=== PATIENT | female | born 1990 | race Two or more races ===

== ENCOUNTER 2021-12-04 19:40 | Emergency (ER) | payer OTHER ==
[2021-12-04] MEDS ORDERED: CHERRY SYRUP 10 ML UDC PO ONE (20:04)
[2021-12-04] MEDS ORDERED: diphenhydrAMINE INJ 50 MG/ML VIAL IM STA (20:04)
[2021-12-04] MEDS ORDERED: EPINEPHrine 1 MG/ML AMP IM STA (20:04)
[2021-12-04] MEDS ORDERED: DEXAMETHASONE 10 MG/ML VIAL PO STA (20:04)
--- NOTE | 2021-12-04 20:06 | ED Physician Documentation ---
History of Present Illness - Stated complaint Stated Complaint: SWOLLEN LIPS,RASH,SWOLLEN THROAT - Chief complaint Chief Complaint: Allergic Rx - History obtained from History obtained from: Patient - Additonal information Additional information: 31-year-old woman is approximately 2 weeks out from gastric bypass. She was advancing her diet and ate eggs several times over the last 24 hours, each time she ate eggs she developed worsening hives and now lip swelling and diffuse itching. No associated shortness of breath. No prior history of allergies. Review of Systems Constitutional: reports: Reviewed and negative Eyes: reports: Reviewed and negative Ears: reports: Reviewed and negative Nose: reports: Reviewed and negative PD PAST MEDICAL HISTORY - Past Medical History Past Medical History: Yes Psych: Depression, Anxiety Musculoskeletal: Chronic back pain - Past Surgical History Past Surgical History: Yes General: Gastric surgery Ortho: Spine surgery - Present Medications Home Medications: Ambulatory Orders Medication Instructions Recorded Confirmed PrednisoLONE [Prelone] 10 ml PO DAILY 5 Days #50 ml 12/04/21 - Allergies Allergies/Adverse Reactions: Allergies Allergy/AdvReac Type Severity Reaction Status Date / Time No Known Drug Allergies Allergy Verified 12/04/21 19:46 - Social History Does the pt smoke?: No Smoking Status: Never smoker Does the pt drink ETOH?: No Does the pt have substance abuse?: No - Immunizations Immunizations are current?: Yes PD ED PE NORMAL - Vitals Vital signs reviewed: Yes - General General: Alert and oriented X 3, No acute distress - HEENT HEENT: Other (She has mild angioedema of the upper and lower lips, relatively symmetric, posterior oropharynx is normal.) - Cardiac Cardiac: RRR, No murmur - Respiratory Respiratory: No respiratory distress, Clear bilaterally - Abdomen Abdomen: Normal bowel sounds, Soft, Non tender - Derm Derm: Other (Diffuse confluent hives) - Neuro Neuro: Alert and oriented X 3, Normal speech Results - Vitals Vitals: Vital Signs - 24 hr 12/04/21 19:46 Temperature 36.5 C Heart Rate 80 Respiratory 16 Rate Blood Pressure 132/80 H O2 Saturation 96 Oxygen O2 Source Room air PD MEDICAL DECISION MAKING - ED course ED course: 31-year-old woman presents with allergic reaction, potentially to eggs. She is treated here with IM epinephrine and oral dexamethasone and IM Benadryl. Departure - Departure Disposition: 01 Home, Self Care Clinical Impression: Allergic urticaria Condition: Good Record reviewed to determine appropriate education?: Yes Instructions: ED Allergic Reaction General Other Prescriptions: PrednisoLONE [Prelone] 10 ml PO DAILY 5 Days #50 ml Comments: I sent your prescription electronically to [facility] in [place]. Return if worsening. Follow-up with your physician for consideration for referral to an hotel lobby concierge to confirm that the allergic reaction was due to eggs.
[2021-12-04 20:42] VITALS: BP 125/82
== END 2021-12-04 20:42 | disposition home or self-care (01) ==
LOC: ED 19:40
DX: L50.0 Allergic urticaria (principal); Z98.84 Bariatric surgery status
CPT/HCPCS: 96372; 99282; 99283; A9270; J1200

== ENCOUNTER 2021-12-05 17:15 | Emergency (ER) | payer OTHER ==
[2021-12-05 17:22] VITALS: BP 141/86
[2021-12-05] MEDS ORDERED: DOXEPIN 10 MG CAPSULE PO STA (17:33)
[2021-12-05] MEDS ORDERED: CETIRIZINE 10 MG TABLET PO STA (17:34)
--- NOTE | 2021-12-05 17:35 | ED Physician Documentation ---
History of Present Illness - Stated complaint Stated Complaint: ALLERGIC REACTION - Chief complaint Chief Complaint: Allergic Rx - History obtained from History obtained from: Patient - Additonal information Additional information: 31-year-old woman with recent gastric bypass was seen last night for allergic reaction related to eggs. She has not had any more eggs today, but has worsened mostly with regards to the rash and the itching. The lip swelling is better. Review of Systems Constitutional: reports: Reviewed and negative Eyes: reports: Reviewed and negative Ears: reports: Reviewed and negative Cardiac: reports: Reviewed and negative Respiratory: reports: Reviewed and negative PD PAST MEDICAL HISTORY - Past Medical History Psych: Depression, Anxiety Musculoskeletal: Chronic back pain - Past Surgical History Past Surgical History: Yes General: Gastric surgery Ortho: Spine surgery - Present Medications Home Medications: Ambulatory Orders Medication Instructions Recorded Confirmed PrednisoLONE [Prelone] 10 ml PO DAILY 5 Days #50 ml 12/04/21 12/05/21 Cetirizine HCl [Zyrtec] 10 mg PO DAILY #20 tablet 12/05/21 Doxepin [SINEquan] 10 mg PO TID PRN #20 cap 12/05/21 - Allergies Allergies/Adverse Reactions: Allergies Allergy/AdvReac Type Severity Reaction Status Date / Time No Known Drug Allergies Allergy Verified 12/05/21 17:23 - Social History Does the pt smoke?: No Smoking Status: Never smoker Does the pt drink ETOH?: No Does the pt have substance abuse?: No - Immunizations Immunizations are current?: Yes PD ED PE NORMAL - Vitals Vital signs reviewed: Yes - General General: Alert and oriented X 3, No acute distress - HEENT HEENT: Other (Phonation and visualized portions of the oropharynx are normal. There is may be still some very mild angioedema of the lower lip but better than last night.) - Respiratory Respiratory: No respiratory distress, Clear bilaterally - Derm Derm: Other (Diffuse body wide hives) - Neuro Neuro: Alert and oriented X 3, Normal speech Results - Vitals Vitals: Vital Signs - 24 hr 12/05/21 17:19 Temperature 37.2 C Heart Rate 87 Respiratory 22 Rate Blood Pressure 141/86 H O2 Saturation 97 Oxygen O2 Source Room air PD MEDICAL DECISION MAKING - ED course ED course: 31-year-old woman with persistent allergic reaction despite treatment yesterday, will substitute doxepin and Zyrtec for the Benadryl. She is already on steroids. Epinephrine yesterday was not helpful. Departure - Departure Disposition: 01 Home, Self Care Clinical Impression: Allergic urticaria Condition: Good Record reviewed to determine appropriate education?: Yes Instructions: ED Allergic Reaction General Other Prescriptions: Doxepin [SINEquan] 10 mg PO TID PRN #20 cap PRN Reason: Itching Cetirizine HCl [Zyrtec] 10 mg PO DAILY #20 tablet Comments: You can continue the prednisone, medications I am giving you were stronger than Benadryl, like with Benadryl you should not drink or drive with them. Return if worsening. Follow-up with your doctor, still consider allergy referral for formal egg allergy and other testing. I sent your prescription electronically to [facility] in [place]. Discharge Date/Time: 12/05/21 17:48
== END 2021-12-05 17:48 | disposition home or self-care (01) ==
LOC: ED 17:15
DX: L50.0 Allergic urticaria (principal); Z98.84 Bariatric surgery status
CPT/HCPCS: 99282; 99284; A9270

== ENCOUNTER 2022-09-27 02:44 | Emergency (ER) | payer OTHER ==
[2022-09-27] MEDS ORDERED: ACETAMINOPHEN 325 MG TABLET PO STA (03:49)
[2022-09-27] MEDS ORDERED: NIRMATRELVIR/RITONAVIR PREPACK PO STA (04:10)
--- NOTE | 2022-09-27 04:14 | ED Physician Documentation ---
PD HPI URI - Stated complaint Stated Complaint: C+/ N,V,HEADACHE - Chief complaint Chief Complaint: Resp - History obtained from History obtained from: Patient - Additional information Additional information: Patient is a 32-year-old femaleWho is approximately 16 weeks presenting for evaluation of fever and myalgias since yesterday. Her and young daughter are here with similar symptoms. Her mother who lives with them recently tested positive for COVID a few days ago. Her took a home test which had a faint positive line yesterday.Patient denies chest pain, difficulty breathing, cough, abdominal pain, vomiting, dysuria, vaginal bleeding or discharge.Her OB is through [facility]. She is taking prenatals but denies other medications. 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 : None HEENT: None Psych: Depression, Anxiety Musculoskeletal: Chronic back pain Derm: None - Past Surgical History Past Surgical History: Yes General: Gastric surgery Ortho: Spine surgery - Present Medications Home Medications: Ambulatory Orders Medication Instructions Recorded Confirmed Calcium Carbonate [Calcium] 09/27/22 147/Iron/Folic Acid 09/27/22 [Ziphex Tablet] - Allergies Allergies/Adverse Reactions: Allergies Allergy/AdvReac Type Severity Reaction Status Date / Time No Known Drug Allergies Allergy Verified 09/27/22 03:34 - Social History Does the pt smoke?: No Smoking Status: Never smoker Does the pt drink ETOH?: No Does the pt have substance abuse?: No - Immunizations Immunizations are current?: Yes Immunizations: Other immun not current - POLST Patient has POLST: No PD ED PE NORMAL - General General: Alert and oriented X 3, No acute distress, Well developed/nourished - HEENT HEENT: Atraumatic, Moist mucous membranes, Pharynx benign - Neck Neck: Supple, no meningeal sign - Cardiac Cardiac: RRR, No murmur - Respiratory Respiratory: No respiratory distress, Clear bilaterally - Abdomen Abdomen: Soft, Non tender, Non distended - Derm Derm: Warm and dry - Extremities Extremities: No edema Results - Vitals Vitals: Vital Signs - 24 hr 09/27/22 09/27/22 03:34 04:52 Temperature 36.9 C 37.2 C Heart Rate 83 87 Respiratory 16 16 Rate Blood Pressure 126/82 H 132/78 H O2 Saturation 100 100 Oxygen O2 Source Room air - Labs Labs: Laboratory Tests 09/27/22 03:15 Nasal Adenovirus (PCR) NOT DETECTED Nasal B. parapertussis DNA (PCR) NOT DETECTED Nasal Coronavir 229E PCR NOT DETECTED Nasal Coronavir HKU1 PCR NOT DETECTED Nasal Coronavir NL63 PCR NOT DETECTED Nasal Coronavir OC43 PCR NOT DETECTED Nasal Enterovir/Rhinovir PCR NOT DETECTED Nasal Influenza B PCR NOT DETECTED Nasal Influenza A PCR NOT DETECTED Nasal Parainfluen 1 PCR NOT DETECTED Nasal Parainfluen 2 PCR NOT DETECTED Nasal Parainfluen 3 PCR NOT DETECTED Nasal Parainfluen 4 PCR NOT DETECTED Nasal RSV (PCR) NOT DETECTED Nasal B.pertussis DNA PCR NOT DETECTED Nasal C.pneumoniae (PCR) NOT DETECTED Brant Human Metapneumo PCR NOT DETECTED Nasal M.pneumoniae (PCR) NOT DETECTED Nasal SARS-CoV-2 (PCR) DETECTED A Procedures - Bedside sono Bedside sono by EMP: Bedside ultrasound performed: +IUP, + cardiac activity and movement PD MEDICAL DECISION MAKING - ED course ED course: Patient is a 32-year-old who is approximately 16 weeks presenting with viral symptoms. Her family members are here with also with similar symptoms and mother who lives with them is positive for COVID. Patient's respiratory panel is positive for COVID. Her bedside ultrasound is reassuring. As she is I did Discuss Paxlovid with her and she is agreeable to taking this medication. Patient counseled on continued supportive care as well as concerning symptoms to return for.Patient denies abdominal pain, vaginal bleeding. Departure - Departure Disposition: 01 Home, Self Care Clinical Impression: COVID-19 Condition: Stable Instructions: ED Viral Syndrome Comments: You have tested positive for COVID-19. Because you are I have started you on an antiviral medication called Paxlovid. This is safe in .Please make sure to stay hydrated and get plenty of rest. If you have any worsening symptoms such as labored breathing please return to the emergency department. Discharge Date/Time: 09/27/22 04:52
[2022-09-27 04:38] LABS: B. PARAPERTUSSIS- RESP PCR PAN NOT DETECTED; B. PERTUSSIS- RESP PCR PANEL NOT DETECTED; C. PNEUMONIAE- RESP PCR PANEL NOT DETECTED; CORONAVIRUS 229E-RESP PCR NOT DETECTED; CORONAVIRUS HKU1-RESP PCR NOT DETECTED; CORONAVIRUS NL63-RESP PCR NOT DETECTED; CORONAVIRUS OC43-RESP PCR NOT DETECTED; HUMAN METAPNEUMOVIRUS NOT DETECTED; INFLUENZA A- RESP PCR PANEL NOT DETECTED; INFLUENZA B - RESP PCR PANEL NOT DETECTED; M. PNEUMONIAE- RESP PCR PANEL NOT DETECTED; PARAINFLUENZA VIRUS 1 NOT DETECTED; PARAINFLUENZA VIRUS 2 NOT DETECTED; PARAINFLUENZA VIRUS 3 NOT DETECTED; PARAINFLUENZA VIRUS 4 NOT DETECTED; RHINOVIRUS/ENTEROVIRUS NOT DETECTED; RSV- RESP PCR PANEL NOT DETECTED; SARS-CoV-2 -RESP PCR PANEL DETECTED
[2022-09-27 04:53] VITALS: BP 132/78
== END 2022-09-27 04:52 | disposition home or self-care (01) ==
LOC: ED 02:44
DX: O98.512 Other viral diseases complicating pregnancy, second trimester (principal); U07.1 COVID-19; Z3A.16 16 weeks gestation of pregnancy
CPT/HCPCS: 87633; 99282; 99283; A9270; J3490

== ENCOUNTER 2023-02-01 09:27 | Outpatient (CLI) | payer OTHER ==
--- NOTE | 2023-02-01 10:22 | SLEEP CARE CONSULTATION ---
Information from patient questionnaire entered by Nakia Lambert. I have reviewed and concur with the information entered by Nakia Lambert. This document represents the service I personally performed and the decisions made by me, Mary Jo Vega ARNP. History of Present Illness Service Date and Time: 02/01/2023926 Reason for Visit: New patient Chief Complaint: reports: Snoring, Observed pauses in breathing, Fatigue, Frequent awakenings at night Date of Onset: 9MONTHS Usual bedtime: 10-11PM Time it takes to fall asleep: 30MIN-2HRS Snores at night: Yes Observed to quit breathing while asleep: Yes Sleeps alone due to snoring: No Number of times waking at night: 3-4 Reasons for waking at night: reports: Choking (heard by , a few times), Bathroom, Other (UNKNOWN; will nudge her to turn over because of loud snoring). denies: Snoring, Gasping for air Toss, Turn, or Twitch while sleeping: Yes Recalls having dreams: Yes Usually gets out of bed at: [id number]; DEPENDS ON APPOINTMENTS AND WHEN DAUGHTER WAKES UP Feels refreshed in the morning: No Morning headache: Yes (3-4 times a week; AFTER TYLENOL OR COFFEE) Sleepy or fatigued during the day: Yes Ever fallen asleep while driving: No Takes day naps: Yes (depends; 30-60 mins, 2 times a week) Dreams during day naps: No Prior sleep studies: No Additional HPI information: I had the pleasure of seeing SHARAD GALAVIZ today regarding the possibility of her having a sleep disorder. Her current complaints are observed pauses in breathing, fatigue, frequent night awakenings and snoring. She states she has gained a lot of weight since she had some back injury. Her has told her she snores loudly and having pauses in breathing. She states she had weight loss surgery, gastric sleeve, and lost 40 pounds but she still snored and had pauses in breathing. She then got soon after and so far has gained about 15-20 lbs of the weight back. She is about 33 weeks at this time. - Parasomnia Symptoms Ever been unable to move upon waking from sleep: No Walks in sleep: No Talks in sleep: Yes (according to ) Ever acted out dreams in sleep: No Ever felt weak in the knees when startled or emotional: No Bothered by creepy, crawly, restless sensations in legs: No Problems with memory or concentration: No Subjective Initial [place] Sleepiness Scale score: 16 (02/01/23) Past Medical History Past Medical History: reports: Anxiety, Depression, Other (33 weeks ) Social History The patient's occupation is a [employer]. Patient is and lives in [place]. Have you smoked in the past 12 months: No Alcohol use: No Caffeine use: Yes Caffeine amount and frequency: 1 A DAY Family History Family history of sleep disordered breathing: Yes Family Hx Sleep Apnea: Mother: Snoring, Grandparent: Sleep apnea - Treated Allergies and Home Medications Known drug allergies: No Drug allergies reviewed: Yes Home medication list reviewed: Yes Allergy and home medication list: Allergies No Known Drug Allergies Allergy (Verified 01/31/23 14:25) Medications: Ferrous sulfate vitamin Calcium Zyrtec Flonase Review of Systems Weight gain over past 5 years: (15-20 regained since became ) Weight loss over past 5 years: 40 Cardiovascular: denies: high blood pressure Gastrointestinal: reports: nausea, vomitting Neurological: reports: headaches Psychiatric: reports: anxiety, depression Ear/Nose/Throat: reports: nasal congestion, sinus problems, nose bleeds, dry mouth/throat, wisdom teeth removed. denies: tonsillectomy Musculoskeletal: reports: back pain Immunologic: reports: sneezing, allergies to food or environment (seasonal) Physical Exam Vital signs obtained and entered by: NAKIA Peña MA Blood Pressure: 100/64 (LEFT ARM) Cuff size: regular Heart Rate: 82 O2 Saturation: 98 Height: 5 ft 5 in Weight: 221 lb 9.6 oz Body Mass Index: 36.8 BMI Classification: Obese Neck circumference: 14.25 Mouth and throat: narrow oropharynx Soft palate: long Hard palate: normal Uvula: normal Uvula visualization: 25% Mallampati Class III Tongue: enlarged in size with teeth donald on lateral edges Tonsils: small Neck: normal w/o lymphadenopathy or thyromegaly Heart: regular rate and rhythm Lungs: clear bilaterally Impression and Plan 1. Suspected Obstructive Sleep Apnea-Hypopnea Syndrome, as suggested by a history of loud and irregular snoring, observed cessation of breath while asleep, gasping or choking in sleep, morning headache, frequent awakening during the night, unrefreshed sleep, and excessive daytime sleepiness. Narrow oropharynx and obesity are common predisposing factors for obstructive sleep apnea-hypopnea syndrome. I recommend proceeding to polysomnography to confirm the diagnosis and to assess severity. If the patient has significant sleep disordered breathing, a manual CPAP titration study will also be performed to find the optimal treatment pressure. I informed the patient of what the sleep studies involve and after some discussion, obtained agreement to proceed. The pathophysiology of obstructive sleep apnea-hypopnea syndrome was discussed with the patient and health risks of cardiovascular and cerebrovascular disease if not treated. Risks of drowsy driving discussed in detail and patient advised to avoid long distance driving and to veneer puller at the first sign of drowsiness. Patient agreed to plan. * Schedule polysomnography * Avoid long distance driving or driving when feeling sleepy. * Avoid alcohol, sedative and muscle relaxant around bedtime. * Attempt to lose weight. * Review instructions provided by trained office staff on how to prepare for the sleep study. * Return for follow-up after sleep study completed. Counseling Topics: Weight loss health impact Visit Type: In Office Time Spent with Patient (minutes): 30 Provider Statement: I spent 100% of the Face to Face Visit with the patient with greater than 50% spent counseling the patient and coordination of care.
[2023-02-01 10:29] VITALS: BP 100/64
== END 2023-02-01 09:28 | disposition home or self-care (01) ==
LOC: SC 09:27
PROVIDERS: ATTEND Nurse Practitioner Family
DX: R06.83 Snoring (principal); G47.8 Other sleep disorders; R06.81 Apnea, not elsewhere classified; R51.9 Headache, unspecified; G47.10 Hypersomnia, unspecified; F32.A Depression, unspecified; E66.9 Obesity, unspecified; Z33.1 Pregnant state, incidental
CPT/HCPCS: 99203; 99212

== ENCOUNTER 2023-05-16 13:18 | Outpatient (CLI) | payer OTHER | END 2023-05-16 13:19 | disposition home or self-care (01) | LOC: SC 13:18 | PROVIDERS: ATTEND Nurse Practitioner Family | DX: R09.02 Hypoxemia (principal) | CPT/HCPCS: 95806 ==

== ENCOUNTER 2023-06-19 13:30 | Outpatient (CLI) | payer OTHER ==
--- NOTE | 2023-06-19 13:16 | SLEEP CARE CONSULTATION ---
Information from patient questionnaire entered by Nakia Lambert. I have reviewed and concur with the information entered by Nakia Lambert. This document represents the service I personally performed and the decisions made by , Mary Jo Vega ARNP. History of Present Illness Service Date and Time: 06/19/2023 1300 Initial [place] Sleepiness Scale score: 16 Current [place] Sleepiness Scale score: 12 (06/19/23) Additional HPI information: SHARAD GALAVIZ returns via video telehealth visit for follow up and results of the recently performed home sleep study. The patient was informed of the following findings: No significant sleep disordered breathing with an average AHI of 2.6 and halina oxygen saturation of 84%. I explained the pathophysiology behind obstructive sleep apnea. Patient does not have sleep apnea and was advised how weight gain could increase the risk of developing sleep apnea in the future. I strongly encouraged the patient to lose weight. Patient does not drink alcohol. Patient was cautioned about risks of drowsy driving until sleepiness symptoms resolve. Patient denies drowsy driving. Sleep Study - Results Type of Sleep Study: Home sleep study (LAST SEEN 05/17/23) Prior sleep studies: No Polysomnography/Home Sleep Study results: Physician Impression: The quality of the study is good. The length of the study is adequate (> 240 minutes). Please also see the tabulated and graphic data. 1. No significant sleep disordered breathing, with an AHI of 2.6/hr and halina SaO2 of 84%. During the study, the patient had 3 apneas (3 obstructive, 0 central, 0 mixed) and 12 hypopneas. The longest episode lasted 72.5 seconds. The few respiratory events occurred more frequently during supine sleep (supine AHI was 4.0 and non-supine, 1.72). 2. Hypoxemia (ICD-10 R09.02), mild, with the lowest oxygen saturation of 84 % and 15.9 minutes with SaO2 under 90%. Baseline oxygen saturation was normal (Average oxygen saturation was 95%). Allergies and Home Medications Known drug allergies: No Drug allergies reviewed: Yes Home medication list reviewed: Yes (no changes) Allergy and home medication list: Allergies No Known Drug Allergies Allergy (Verified 06/18/23 14:50) Review of Systems Review of systems same as previous: No (delivered baby boy, March 13) Physical Exam Vital signs obtained and entered by: Mary Jo Prince NP Blood Pressure: 127/82 (PER ) Height: 5 ft 5 in (PER PT) Weight: 215 lb (PER PT) Body Mass Index: 35.7 BMI Classification: Obese Impression and Plan 1. Hypoxemia, mild, with a halina oxygen saturation of 84% and 15.9 minutes spent under 90%. Her baseline oxygen saturation was normal with an average oxygen saturation of 95%. Dr. Hayward noted that the hypoxemia may be a pulse oximetry artifact and further evaluation of hypoxemia was recommended. I advised patient to follow up with primary provider. 2. Obesity, unspecified. Currently patients BMI is 35.7. Obesity increases the risk of apnea, CPAP pressure requirements and overall health risks especially cardiovascular and diabetes. Thus patient is advised to try to lose weight. * Follow up with primary provider for mild hypoxemia * Attempt to lose weight * Return as needed for follow up. Counseling Topics: Weight loss health impact Visit Type: Telehealth Video Video Type: Doximity Patient Location: Pharmacy Other Participants: Child Location of Provider: Office Patient agrees and consents to this telehealth visit type: Yes Patient agrees to have their insurance billed: Yes Time Spent with Patient (minutes): 11 Provider Statement: I spent 100% of the Telehealth Video Call with the patient with greater than 50% spent counseling the patient and coordination of care.
[2023-06-20 10:56] VITALS: BP 127/82
== END 2023-06-19 13:31 | disposition home or self-care (01) ==
LOC: SC 13:30
PROVIDERS: ATTEND Nurse Practitioner Family
DX: G47.36 Sleep related hypoventilation in conditions classified elsewhere (principal); E66.9 Obesity, unspecified; Z68.35 Body mass index [BMI] 35.0-35.9, adult

== ENCOUNTER 2023-08-02 08:30 | Outpatient (CLI) | payer OTHER ==
[2023-08-02 08:46] LABS: HCT - HEMATOCRIT 42.1 % (37.0-47.0); MEAN CORPUSCULAR HEMOGLOBIN 29.5 pg (27.0-31.0); MEAN CORPUSCULAR HGB CONC 33.3 g/dL (32.0-36.0); MEAN CORPUSCULAR VOLUME 88.8 fL (81.0-99.0); MEAN PLATELET VOLUME 9.1 fL (7.9-10.8); RED BLOOD COUNT 4.74 10^6/uL (4.20-5.40); RED CELL DISTRIBUTION WIDTH 11.8 % (12.0-15.0); WHITE BLOOD COUNT 8.8 x10^3/uL (4.8-10.8)
[2023-08-02 09:14] LABS: AMYLASE 40 U/L (28-100); CHOL/HDL RATIO 3.3 (<4.4); CHOLESTEROL 160 mg/dL; HDL CHOLESTEROL 49 mg/dL; LDL CHOLESTEROL,CALCULATED 98 mg/dL; LIPASE 41 U/L (11-82); TRIGLYCERIDES 67 mg/dL (48-352); VLDL CHOLESTEROL 13 mg/dL
[2023-08-02 09:30] LABS: THYROID STIMULATING HORMONE 1.61 uIU/mL (0.34-5.60)
[2023-08-02 09:36] LABS: FERRITIN 26.1 ng/mL (11.0-306.8)
[2023-08-02 13:59] LABS: ESTIMATED AVERAGE GLUCOSE 103 mg/dL (70-100); HEMOGLOBIN A1c% 5.2 % (4.27-6.07)
== END 2023-08-02 08:31 | disposition home or self-care (01) ==
LOC: LAB 08:30
PROVIDERS: ATTEND Nurse Practitioner
DX: R53.83 Other fatigue (principal); E78.5 Hyperlipidemia, unspecified
CPT/HCPCS: 36415; 80061; 82150; 82728; 83036; 83690; 83721; 84443; 85027